=== PATIENT | female | born 1990 | race African-American/Black ===

== ENCOUNTER 2019-05-05 11:04 | Emergency (ER) | payer SELFPAY ==
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
== END 2019-05-05 15:20 | disposition home or self-care (01) ==
LOC: ERS 11:04
DX: S02.2XXA Fracture of nasal bones, initial encounter for closed fracture (principal); S00.12XA Contusion of left eyelid and periocular area, initial encounter; S10.91XA Abrasion of unspecified part of neck, initial encounter; F17.210 Nicotine dependence, cigarettes, uncomplicated; Y04.2XXA Assault by strike against or bumped into by another person, initial encounter
CPT/HCPCS: 70450; 70486; 71045; 72125

== ENCOUNTER 2019-09-11 23:30 | Emergency (ER) | payer SELFPAY ==
[2019-09-11] MEDS ORDERED: Sucralfate 1 GM TAB PO SCH (23:45)
[2019-09-11 23:59] LABS: #Lymphocytes 1.5 thou/uL (1.20-3.40); #Monocytes 0.7 thou/uL (0.11-0.59); #Neutrophils 5.7 thou/uL (1.40-6.50); %Basophils 0.2 % (0.0-1.0); %Eosinophils 0.4 % (0.0-10.0); %Lymphocytes 19.1 % (21.0-51.0); %Neutrophils 71.3 % (42.0-75.0); Hemoglobin 14.3 g/dL (12.0-16.0); Mean Corpuscular HGB CONC 33.8 g/dL (32.0-36.0); Mean Corpuscular Hemoglobin 33.6 pg (27.0-31.0); Mean Corpuscular Volume 99.6 fL (78.0-98.0); Mean Platelet Volume 7.4 fL (7.4-10.4); Platelet Count 215 thou/uL (130-400); RBC Distribution Width 10.8 % (11.5-14.5); Red Blood Cell (RBC) Count 4.24 mill/uL (4.20-5.40); White Blood Cell (WBC) Count 7.9 thou/uL (4.8-10.8)
[2019-09-12 00:07] LABS: BHCG - Serum Negative (NEGATIVE); Pregs Control Background? CLEAR/WHITE (CLR/WHITE); Pregs Control Bar Appear? YES (CONTROL BAR)
[2019-09-12 00:19] LABS: ALT (SGPT) 15 U/L (8-55); AST (SGOT) 27 U/L (5-34); Albumin 4.3 g/dL (3.5-5.0); Alkaline Phosphatase 68 U/L (40-110); Anion Gap 14 mmol/L (10-20); BUN (Urea Nitrogen) 15 mg/dL (7.0-18.7); Bilirubin, Total 0.8 mg/dL (0.2-1.2); Calc. Creatinine Clearance 0 mL/min (70-130); Calcium 9.1 mg/dL (7.8-10.44); Carbon Dioxide 24 mmol/L (22-29); Chloride 103 mmol/L (98-107); Estimated GFR-MDRD 76; Globulin 3.6 g/dL (2.4-3.5); Glucose 118 mg/dL (70-105); Lipase 12 U/L (8-78); Potassium 3.5 mmol/L (3.5-5.1); Protein, Total 7.9 g/dL (6.0-8.3); Sodium 137 mmol/L (136-145)
[2019-09-12 00:28] LABS: Bacteria/HPF 1+ HPF (None Seen); Bilirubin Negative (Negative); Blood, Urine Negative (Negative); Clarity Turbid (Clear); Glucose, Urine (Dipstick) Normal (Negative); Leukocyte 25 Leu/uL (Negative); Nitrite Negative (Negative); Protein, Urine (Dipstick) 50 mg/dL (Neg-Trace); RBC/HPF 0-3 HPF (0-3); Squamous Epithelial Greater than 50 HPF (0-3)
== END 2019-09-12 00:38 | disposition home or self-care (01) ==
LOC: ERS 23:30
DX: K29.70 Gastritis, unspecified, without bleeding (principal); F17.210 Nicotine dependence, cigarettes, uncomplicated
CPT/HCPCS: 36415; 80053; 81003; 81015; 83690; 84703; 85025; 93005

== ENCOUNTER 2020-08-08 05:19 | Day surgery (SDC) | payer OTHER ==
[2020-08-08 05:49] VITALS: BMI 36.9
[2020-08-08] MEDS ORDERED: hydrALAZINE 20 MG/ML VIAL SLOW IVP PRN (07:26)
--- NOTE | 2020-08-08 07:26 | PDOC.LDHP ---
Labor and Delivery H&P Chief complaint: contractions HPI: 30yo G1 presents for evaluation of contractions that started at 0230 this morning. They are uncomfortable, however, she has been able to talk and walk through them. Her course has been unremarkable except for a positive UDS for MJ in April. She denies loss of fluid, vaginal bleeding, or abnormal discharge. She endorses movement. C/o frequent urination. Dating criteria: second trimester ultrasound Grav: 1 Para: 0 Current complications: none Abnormal US findings: No Past Medical History: None Current medications: pre- vitamins Previous surgical history: none Allergies/Adverse Reactions: Allergies Allergy/AdvReac Type Severity Reaction Status Date / Time No Known Allergies Allergy Unverified 09/11/19 23:55 Social history: drug use - Physical Exam Vital signs reviewed and normal: yes General: NAD, resting, breathing through contractions Heart: RRR Lungs: CTAB Abdomen: NTTP Extremeties: no edema FHT: category 1 - Vaginal Exam cm dilated: 0 (@ 0600 per RN ) Effacement: 0% Station: -3 - OB Labs Blood type: O RH: positive Antibody Screen: negative HIV: negative RPR: negative HEPSAg: negative 1 hour GCT: negative GBS: negative Urine drug screen: positive (05/11 for marijuana) Rubella: immune - Assessment Term patient, in early latent labor. - SVE closed/thick/high. - Monitored FHT - reassuring and reactive. - irregular contractions. - Pt lives out of town and arrived via EMS. We will keep her for a few hours and recheck her cervix prior to deciding to send her home. - UA ordered to r/o UTI - GBS negative. Pascual SANTOS PGY2 Plan discussed with Dr. Jimenez attending. - Plan Plan: observation in L&D, other (OBGYN Fcaulty: G1Po here for labor/CTXs. CC: CTX. 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 [place] and is here for labor OBS. Initial exam was closed. EGA is 39 weeks, sees Dr Murillo. If not changed or if not actively laboring, we will likely DC homw with [facility] follow up.)
--- NOTE | 2020-08-08 08:33 | PDOC.LDHP ---
Labor and Delivery H&P Chief complaint: contractions (at term) HPI: Patient of Dr Murillo here for possible CTX. No hx VB, good FM, no SOB. States CTS come and go. She arrived here by EMS for labor observation. Also with urinary frequency. Review of Systems: No fever No SOB Good FM No diarrhea States some urinary frequency Current gestational age (weeks): 39 Dating criteria: last menstrual period Grav: 1 OB History Details: G1 Current complications: none Abnormal US findings: No Past Medical History: NA Current medications: none Allergies/Adverse Reactions: Allergies Allergy/AdvReac Type Severity Reaction Status Date / Time No Known Allergies Allergy Unverified 09/11/19 23:55 Social history: other (Patient denied substance use but she has documeneted marijuana use in Apr) - Physical Exam Vital signs reviewed and normal: yes General: breathing through contractions FHT: category 1 (mod variability with accels, rate normal) [place] contractions every: irregular - Vaginal Exam cm dilated: 0 (at first check by prior team) - Assessment Latent labor/threatened labor at 39 weeks, G1...patient with some urinary frequency. Pain looks out of scale to what we are seeing on monitor... Plan: - Plan Plan: observation in L&D (Check UA, check UDS. tracing is reassuring and I do not suspect active labor at this time. Await labs.)
[2020-08-08 08:39] LABS: Bacteria/HPF None Seen HPF (None Seen); Bilirubin Negative (Negative); Blood, Urine Negative (Negative); Clarity Clear (Clear); Glucose, Urine (Dipstick) Normal (Negative); Ketone, Urine Negative (Negative); Leukocyte Negative Leu/uL (Negative); Nitrite Negative (Negative); Protein, Urine (Dipstick) 30 mg/dL (Neg-Trace); Specific Gravity, Urine 1.026 (1.002-1.036); Urobilinogen Normal mg/dL (Less than 2); pH, Urine 6.5 (5.0-9.0)
--- NOTE | 2020-08-08 08:42 | PDOC.BPN ---
- Brief Progress Note Exam: Follow up exam per Dr Annabelle jacobson still closed but baby station at -1. This may be the cause of her pain. No evidence LOF. Strip is normal. We will await UA and UDS and home after results, likely, to follow up Sunday.
[2020-08-08] MEDS ORDERED: Butorphanol Tartrate 1 MG/ML VIAL SLOW IVP PRN (08:55)
--- NOTE | 2020-08-08 08:55 | PDOC.BPN ---
- Brief Progress Note UA not c/w uti. awaiting UDS results
[2020-08-08 09:47] LABS: Amphetamine Not Detected (NotDetected); Barbiturates Screen Not Detected (NotDetected); Benzodiazepine Screen Not Detected (NotDetected); Cocaine Metabolite Screen Not Detected (NotDetected); Medtox Control Line Valid? VALID (VALID); Medtox Reader # READER 1; Methadone Not Detected (NotDetected); Methamphetamine Not Detected (NotDetected); Opiate Screen Not Detected (NotDetected); Oxycodone Screen Not Detected (NotDetected); Phencyclidine (PCP) Not Detected (NotDetected); THC/Cannabinoid Screen Not Detected (NotDetected); Tricyclic Screen Not Detected (NotDetected)
--- NOTE | 2020-08-08 10:36 | PDOC.BPN ---
- Brief Progress Note UDS negative pt's pain controlled and eating breakfast now. D/c home with precautions of return if LOF, consistent ctx, decreased FM, va ginal bleeding. f/u with PCP, office visit on Sunday.
== END 2020-08-08 11:54 | disposition home or self-care (01) ==
LOC: L&D/OP 05:19
PROVIDERS: ATTEND Family Medicine
DX: O47.1 False labor at or after 37 completed weeks of gestation (principal); O99.891 Other specified diseases and conditions complicating pregnancy; R35.0 Frequency of micturition; Z3A.39 39 weeks gestation of pregnancy; Z20.828 Contact with and (suspected) exposure to other viral communicable diseases
CPT/HCPCS: 80306; 81003; 81015; J0595

== ENCOUNTER 2020-08-08 19:10 | Inpatient (IN) | payer OTHER ==
[~2020-08-08 19:10] MED LIST: Bupivacaine 0.25% HCL 30 ML VIAL ONE
[2020-08-08 19:49] VITALS: BMI 36.9
[2020-08-08] MEDS ORDERED: hydrALAZINE 20 MG/ML VIAL SLOW IVP PRN (21:16)
[2020-08-08] MEDS ORDERED: Ondansetron PF 4 MG/2 ML Vial IVP PRN (21:16)
[2020-08-08] MEDS ORDERED: Promethazine HCl 25 MG/ML VIAL IM PRN (21:16)
--- NOTE | 2020-08-08 21:18 | PDOC.LDHP ---
Labor and Delivery H&P Chief complaint: contractions HPI: Patient seen at bedside. See dictated H&P. Allergies/Adverse Reactions: Allergies Allergy/AdvReac Type Severity Reaction Status Date / Time No Known Allergies Allergy Verified 08/08/20 19:51
[2020-08-08] MEDS: Lactated Ringer's 1,000 ML IV SCH (21:33)
[2020-08-08] MEDS: Butorphanol Tartrate 1 MG/ML VIAL SLOW IVP PRN ×2 (21:33→23:47)
[2020-08-08 21:54] LABS: Hemoglobin 13.7 g/dL (12.0-16.0); Mean Corpuscular HGB CONC 35.6 g/dL (32.0-36.0); Mean Corpuscular Hemoglobin 33.8 pg (27.0-31.0); Mean Platelet Volume 9.5 fL (7.4-10.4); Platelet Count 233 thou/uL (130-400); RBC Distribution Width 11.8 % (11.5-14.5); Red Blood Cell (RBC) Count 4.04 mill/uL (4.20-5.40); White Blood Cell (WBC) Count 8.2 thou/uL (4.8-10.8)
[2020-08-08 22:04] LABS: ALT (SGPT) 18 U/L (8-55); AST (SGOT) 22 U/L (5-34); Albumin 3.7 g/dL (3.5-5.0); Alkaline Phosphatase 207 U/L (40-110); Anion Gap 19 mmol/L (10-20); BUN (Urea Nitrogen) 7 mg/dL (7.0-18.7); Bilirubin, Total 0.6 mg/dL (0.2-1.2); Calc. Creatinine Clearance 203 mL/min (70-130); Calcium 9.4 mg/dL (7.8-10.44); Carbon Dioxide 20 mmol/L (22-29); Chloride 100 mmol/L (98-107); Globulin 3.6 g/dL (2.4-3.5); Glucose 81 mg/dL (70-105); Potassium 3.7 mmol/L (3.5-5.1); Protein, Total 7.3 g/dL (6.0-8.3); Sodium 135 mmol/L (136-145)
--- NOTE | 2020-08-08 22:17 | HP ---
TIME OF EVALUATION: Roughly 2099, time now 2124. LOCATION: Labor and Delivery in triage B. CHIEF COMPLAINT: Contractions. This is a patient of Dr. Murillo. EGA: 39 weeks HISTORY OF PRESENT ILLNESS: In brief, this patient is a 30-year-old, here for contractions. She was seen earlier in the day and made no cervical change from 1 cm, so we send her home. She is a G1, P0. She states that she went home, but still had regular contractions, but she denies vaginal bleeding or leakage of fluid. She denies shortness of breath or recent trauma. At this point, she notes that her course has been complicated for positive urine drug screen for marijuana back in April. She did have a urine tox screen done earlier today when she was in triage and nothing was detected. REVIEW OF SYSTEMS: Complete review of systems was checked and is otherwise negative unless specified in the HPI. GENERAL: She denies chills or fevers. CHEST: No chest pain or shortness of breath. OB/Uterus: She has good movement, but does have painful contractions, although she denies vaginal bleeding or leakage of fluid. EXTREMITIES: No pain or swelling in the extremities. PAST MEDICAL HISTORY: None. CURRENT MEDICATIONS: vitamins. PREVIOUS SURGICAL HISTORY: None. ALLERGIES: NO KNOWN DRUG ALLERGIES. SOCIAL HISTORY: Positive for marijuana, although the patient denies. PHYSICAL EXAMINATION: VITAL SIGNS: Blood pressure ranges from 130s over 70s to 140s over 80s. Pulse is in the 90s and she is afebrile. GENERAL: She is in no acute distress, but is having some pain with contractions. ABDOMEN: Soft and nontender and gravid and size appropriate for dates. Vaginal exam reveals a cervix about 1 cm dilation, still about 75% effaced, -2 station by RN exam. There is no gross evidence of leakage of water or vaginal bleeding. On the external monitor, I have evaluated the monitor and I find the heart tones to be reactive/reassuring. There are contractions on the tocodynamometer. They are somewhat irregular, about every 3 to 5 minutes or so. Currently, the maternal heart rate is being registered at around 90 due to maternal position changes. ASSESSMENT: This is a primigravida with an estimated gestational age of 39 weeks today with latent labor. This is her second evaluation in Labor and Delivery. PLAN: 1. As this is her second visit to Labor and Delivery and she is 39 weeks with some borderline blood pressures (although I suspect that they may be pain related), we will keep the patient for admission. 2. I have sent Dr. Chidi Paul. 3. If she does not make cervical change, we will consider Cytotec once she has a better pain relief. 4. I have ordered evaluation for preeclampsia including a CMP and a CBC. Job ID: [id number] MTDD
[2020-08-08 22:23] LABS: Syphilis Antibody Nonreactive (Nonreactive); Syphilis Antibody Index 0.03 S/CO (<1.00 Non-Reactive)
[2020-08-08 22:33] LABS: HBSAg Index 0.13 S/CO (0-0.99); HIV (1/2) Antibody/Antigen Non-Reactive (NonReactive); HIV 1/2 INDEX 0.11 S/CO (<1.00); Hep B Surf Ag Non-Reactive S/CO (NonReactive)
[2020-08-09] MEDS ORDERED: DISCONTINUE ALL PREVIOUS NARCOTICS FS SCH (02:00)
[2020-08-09] MEDS: Bupivacaine 0.5% 20 ML, fentaNYL Citrate/PF 400 MCG in Sodium Chloride 0.9% 72 ML EPIDURAL SCH ×2 (02:27→09:56)
[2020-08-09] MEDS ORDERED: Acetaminophen 325 MG TAB PO PRN (02:31)
[2020-08-09] MEDS ORDERED: Promethazine HCl 25 MG/ML VIAL IM PRN ×2 (02:31→20:13)
[2020-08-09] MEDS ORDERED: Ondansetron PF 4 MG/2 ML Vial IVP PRN ×2 (02:31→20:13)
[2020-08-09] MEDS ORDERED: Naloxone HCl 0.4 mg/ml Vial IVP PRN ×2 (02:31)
[2020-08-09] MEDS ORDERED: ePHEDrine 50 MG/ML VIAL SLOW IVP PRN (02:31)
[2020-08-09] MEDS ORDERED: Lactated Ringer's 500 ML IV PRN (02:31)
[2020-08-09] MEDS ORDERED: diphenhydrAMINE 50 MG/ML VIAL IVP PRN (02:31)
[2020-08-09] MEDS: Lactated Ringer's 1,000 ML IV SCH ×2 (02:35→11:10)
[2020-08-09] MEDS ORDERED: Fentanyl 4 mcg/Bupivacaine 0.1% Cassette 100 ML EPIDURAL SCH (02:45)
[2020-08-09] MEDS ORDERED: Communication Order-Pharmacy FS SCH (02:45)
[2020-08-09 05:41] LABS: SARS-CoV-2 MS2 Positive; SARS-CoV-2 N Gene Negative; SARS-CoV-2 S Gene Negative; SARS-CoV-2 by NAA Not Detected (NotDetected); SARS-CoV-2 orf1ab Negative
[2020-08-09] MEDS ORDERED: NS w/ Oxytocin 10 units 500 ML IVPB SCH (07:45)
[2020-08-09] MEDS ORDERED: NS / Oxytocin 40 units/1000ml 1,000 ML IV PRN (13:20)
[2020-08-09] MEDS ORDERED: Lidocaine 1% (PF) 30 ML VIAL SC PRN (13:20)
[2020-08-09] MEDS ORDERED: Carboprost 250 MCG/ML AMP IM PRN (13:20)
[2020-08-09] MEDS ORDERED: Misoprostol 200 MCG TAB PR PRN (13:20)
[2020-08-09] MEDS ORDERED: HYDROcodone/Acetaminophen 5/325 mg Tablet PO PRN ×3 (13:20→20:13)
[2020-08-09] MEDS ORDERED: Diphenoxylate HCl/Atropine Tablet PO PRN (13:20)
[2020-08-09] MEDS ORDERED: Ibuprofen 800 MG TAB PO PRN (13:20)
[2020-08-09] MEDS ORDERED: Butorphanol Tartrate 1 MG/ML VIAL SLOW IVP SCH (17:30)
[2020-08-09] MEDS ORDERED: Milk Of Magnesia 30 ML UDCUP PO PRN (20:13)
[2020-08-09] MEDS ORDERED: Preparation H Ointment 28 GM TUBE PR PRN (20:13)
[2020-08-09] MEDS ORDERED: diphenhydrAMINE 25 MG CAP PO PRN (20:13)
[2020-08-09] MEDS ORDERED: Bisacodyl 10 MG SUPP PR PRN (20:13)
[2020-08-09] MEDS ORDERED: cloNIDine 0.1 MG TAB PO PRN (20:13)
[2020-08-09] MEDS ORDERED: NS / Oxytocin 40 units/1000ml 1,000 ML IV SCH (20:13)
[2020-08-09] MEDS ORDERED: hydrALAZINE 20 MG/ML VIAL SLOW IVP SCH (20:30)
[2020-08-09] MEDS: Ibuprofen 800 MG TAB PO SCH (21:22)
[2020-08-09] MEDS: Docusate Calcium (SURFAK) 240 MG CAP PO SCH (22:21)
[2020-08-10] MEDS: Ibuprofen 800 MG TAB PO SCH ×3 (05:15→21:18)
[2020-08-10] MEDS: Ferrous Sulfate 325 MG TAB PO SCH ×2 (08:36→16:41)
[2020-08-10] MEDS: Prenatal Vitamin 1 TAB PO SCH (08:53)
[2020-08-10] MEDS: Benzocaine-Menthol 82.5 ML CAN TOP PRN (08:53)
[2020-08-10] MEDS: Docusate Calcium (SURFAK) 240 MG CAP PO SCH ×2 (08:53→21:17)
[2020-08-10] MEDS ORDERED: Adacel (T-DAP) 0.5 ML SYRINGE IM ONE (09:00)
[2020-08-11] MEDS: Ibuprofen 800 MG TAB PO SCH ×2 (05:56→13:10)
[2020-08-11 08:13] VITALS: BP 110/59; TEMP 97.9
[2020-08-11] MEDS: Ferrous Sulfate 325 MG TAB PO SCH (08:19)
[2020-08-11] MEDS: Docusate Calcium (SURFAK) 240 MG CAP PO SCH (08:37)
[2020-08-11] MEDS: Prenatal Vitamin 1 TAB PO SCH (08:37)
[2020-08-11] MEDS: Benzocaine-Menthol 82.5 ML CAN TOP PRN (08:44)
== END 2020-08-11 13:27 | disposition home or self-care (01) | DRG 807 ==
LOC: L&D/OP 19:10 → L&D 21:16 → 3SW 08-09 20:50
PROVIDERS: ADMIT Family Medicine; ATTEND Family Medicine
PROC: 10E0XZZ Delivery of Products of Conception, External Approach (ICD-10-PCS; principal; 2020-08-09)
PROC: 10907ZC Drainage of Amniotic Fluid, Therapeutic from Products of Conception, Via Natural or Artificial Opening (ICD-10-PCS; 2020-08-09)
PROC: 0W8NXZZ Division of Female Perineum, External Approach (ICD-10-PCS; 2020-08-09)
DX: O99.214 Obesity complicating childbirth (principal); Z37.0 Single live birth; Z3A.39 39 weeks gestation of pregnancy; E66.9 Obesity, unspecified; Z20.828 Contact with and (suspected) exposure to other viral communicable diseases
CPT/HCPCS: 36415; 51701; 51702; 80053; 80306; 81003; 81015; 85027; 86780; 86850; 86900; 86901; 87340; 87389; 87635; 96360; 96361; 96375; 99284; 99285; J0360; J0595; J2590; J3010; J3490; Q0163; S0020; U0003

== ENCOUNTER 2021-01-30 12:02 | Emergency (ER) | payer OTHER ==
[2021-01-30] MEDS ORDERED: Ibuprofen 800 MG TAB ONE (13:14)
== END 2021-01-30 13:17 | disposition home or self-care (01) ==
LOC: ERS 12:02
DX: J02.9 Acute pharyngitis, unspecified (principal); M79.10 Myalgia, unspecified site; Z20.822 Contact with and (suspected) exposure to COVID-19; F17.210 Nicotine dependence, cigarettes, uncomplicated
CPT/HCPCS: 99283

== ENCOUNTER 2021-08-20 10:23 | Emergency (ER) | payer OTHER ==
[2021-08-20 19:40] LABS: SARS-CoV-2 PCR by NAA Not Detected (NotDetected)
== END 2021-08-20 12:18 | disposition home or self-care (01) ==
LOC: ERS 10:23
DX: Z20.822 Contact with and (suspected) exposure to COVID-19 (principal); Z87.891 Personal history of nicotine dependence
CPT/HCPCS: 99283; U0003; U0005

== ENCOUNTER 2022-03-08 11:03 | Emergency (ER) | payer OTHER | END 2022-03-08 13:58 | disposition home or self-care (01) | LOC: ERS 11:03 | DX: R05.9 Cough, unspecified (principal); Z20.822 Contact with and (suspected) exposure to COVID-19; Z87.891 Personal history of nicotine dependence | CPT/HCPCS: 99283; U0003; U0005 ==

== ENCOUNTER 2022-12-07 13:59 | Outpatient (CLI) | payer OTHER | END 2022-12-07 14:00 | disposition home or self-care (01) | LOC: BICULT 13:59 | PROVIDERS: ATTEND Family Medicine | DX: O09.892 Supervision of other high risk pregnancies, second trimester (principal); Z3A.21 21 weeks gestation of pregnancy | CPT/HCPCS: 76805 ==

== ENCOUNTER 2023-05-14 22:53 | Emergency (ER) | payer MEDICAID, OTHER ==
[2023-05-14 23:29] LABS: Bacteria/HPF 3+ HPF (None Seen); Bilirubin Negative (Negative); Blood, Urine 2+ (Negative); CAUTI Indications for Culture Dysuria,urgency,freq; Clarity Extra Turbid (Clear); Glucose, Urine (Dipstick) Normal (Negative); Ketone, Urine Negative (Negative); Leukocyte 500 Leu/uL (Negative); Nitrite 1+ (Negative); Protein, Urine (Dipstick) 100 mg/dL (Neg-Trace); Renal Epithelial 0-3 HPF (None Seen); Specific Gravity, Urine 1.012 (1.002-1.036); Urobilinogen Normal mg/dL (Less than 2); WBC/HPF Greater than 50 HPF (0-3)
[2023-05-14 23:30] LABS: #Monocytes 0.6 thou/uL (0.11-0.59); %Basophils 0.1 % (0.0-1.0); %Eosinophils 0.3 % (0.0-10.0); %Lymphocytes 14.4 % (21.0-51.0); %Monocytes 8.1 % (0.0-10.0); Mean Corpuscular HGB CONC 32.5 g/dL (32.0-36.0); Mean Corpuscular Hemoglobin 31.3 pg (27.0-31.0); Mean Corpuscular Volume 96.2 fl (78.0-98.0); Mean Platelet Volume 10.3 fL (7.4-10.4); Platelet Count 229 10x3/uL (130-400); RBC Distribution Width 12.5 % (11.5-14.5); Red Blood Cell (RBC) Count 4.16 mill/uL (4.20-5.40); White Blood Cell (WBC) Count 7.8 10x3/uL (4.8-10.8)
[2023-05-14 23:35] LABS: Urine Culture Reflex Yes Yes
[2023-05-14 23:54] LABS: ALT (SGPT) 26 U/L (8-55); AST (SGOT) 31 U/L (5-34); Albumin 4.1 g/dL (3.5-5.0); Alkaline Phosphatase 90 U/L (40-110); Anion Gap 15 mmol/L (10-20); BUN (Urea Nitrogen) 10 mg/dL (7.0-18.7); Bilirubin, Total 0.5 mg/dL (0.2-1.2); Calc. Creatinine Clearance 0 mL/min (70-130); Calcium 9.5 mg/dL (7.8-10.44); Carbon Dioxide 24 mmol/L (22-29); Chloride 102 mmol/L (98-107); Estimated GFR 77; Globulin 3.6 g/dL (2.4-3.5); Glucose 85 mg/dL (70-105); Potassium 3.7 mmol/L (3.5-5.1); Protein, Total 7.7 g/dL (6.0-8.3); Sodium 137 mmol/L (136-145)
[2023-05-15] LABS: Pregnancy Test - Urine (BHCG) Negative (Negative); Pregu Control Background? CLEAR/WHITE (CLR/WHITE); Pregu Control Bar Appear? YES (CONTROL BAR); Specific Gravity 1.012 (1.002-1.036)
[2023-05-15] MEDS ORDERED: Ketorolac Tromethamine 30 MG/ML VIAL ONE (00:29)
[2023-05-15] MEDS ORDERED: Famotidine/PF 20 mg/2ml Vial ONE (00:29)
[2023-05-15] MEDS ORDERED: diphenhydrAMINE 50 MG/ML VIAL ONE (00:29)
[2023-05-15] MEDS ORDERED: methylPREDNISolone Sod Succ 40 MG VIAL ONE (00:29)
[2023-05-15] MEDS ORDERED: cefTRIAXone (ROCEPHIN) 2 GM VIAL ONE (01:06)
== END 2023-05-15 03:17 | disposition home or self-care (01) ==
LOC: ERS 22:53
DX: N10 Acute pyelonephritis (principal); N83.202 Unspecified ovarian cyst, left side
CPT/HCPCS: 36415; 74176; 76856; 80053; 81001; 81025; 85025; 87077; 87086; 93976; 96361; 96365; 96375; J0696; J1200; J1885; J2920; S0028

== ENCOUNTER 2023-07-04 11:15 | Emergency (ER) | payer OTHER ==
[2023-07-04] MEDS ORDERED: Naproxen 500 MG TAB ONE (12:27)
== END 2023-07-04 12:30 | disposition home or self-care (01) ==
LOC: ERS 11:15
DX: H65.92 Unspecified nonsuppurative otitis media, left ear (principal)
CPT/HCPCS: 99282

== ENCOUNTER 2024-02-26 16:48 | Observation (INO) | payer OTHER ==
[2024-02-26 17:55] LABS: #Basophils Less than 0.03 10x3/uL (0.0-0.2); #Eosinphils Less than 0.03 10x3/uL (0.0-0.7); %Basophils 0.3 % (0.0-1.0); %Eosinophils 0.1 % (0.0-10.0); %Lymphocytes 16.3 % (21.0-51.0); Hematocrit 40.8 % (36.0-47.0); Hemoglobin 13.8 g/dL (12.0-16.0); Mean Corpuscular HGB CONC 33.8 g/dL (32.0-36.0); Mean Corpuscular Hemoglobin 32.2 pg (27.0-31.0); Mean Corpuscular Volume 95.3 fL (78.0-98.0); Mean Platelet Volume 9.4 fL (7.4-10.4); Platelet Count 296 10x3/uL (130-400); RBC Distribution Width 12.1 % (11.5-14.5); Red Blood Cell (RBC) Count 4.28 mill/uL (4.20-5.40)
[2024-02-26 18:13] LABS: ALT (SGPT) 14 U/L (8-55); AST (SGOT) 19 U/L (5-34); Alkaline Phosphatase 58 U/L (40-110); Anion Gap 13 mmol/L (10-20); BUN (Urea Nitrogen) 11 mg/dL (7.0-18.7); Bilirubin, Total 0.7 mg/dL (0.2-1.2); Calc. Creatinine Clearance 0 mL/min (70-130); Calcium 9.2 mg/dL (7.8-10.44); Carbon Dioxide 26 mmol/L (22-29); Chloride 106 mmol/L (98-107); Estimated GFR 98; Globulin 3.9 g/dL (2.4-3.5); Glucose 73 mg/dL (70-105); Lipase 10 U/L (8-78); Potassium 3.2 mmol/L (3.5-5.1); Protein, Total 7.9 g/dL (6.0-8.3); Sodium 142 mmol/L (136-145)
[2024-02-26 18:15] LABS: Troponin I Less than 0.010 ng/mL (< 0.028)
[2024-02-26 18:27] LABS: Phosphorus 2.1 mg/dL (2.3-4.7)
[2024-02-26 18:29] LABS: Magnesium 1.6 mg/dL (1.6-2.6)
[2024-02-26] MEDS ORDERED: Magnesium 2 GM/50 ML BAG (IN WATER) ONE (18:37)
[2024-02-26] MEDS ORDERED: Ondansetron PF 4 MG/2 ML Vial IVP PRN (19:15)
[2024-02-26] MEDS ORDERED: Acetaminophen 325 MG TAB PO PRN (19:15)
[2024-02-26] MEDS ORDERED: Ondansetron ODT 4 MG TAB SL PRN (19:15)
[2024-02-26 19:26] LABS: Bacteria/HPF 3+ HPF (None Seen); Bilirubin Negative (Negative); Blood, Urine 3+ (Negative); CAUTI Indications for Culture Alt mental st,lethar; Clarity Turbid (Clear); Glucose, Urine (Dipstick) Normal (Negative); Ketone, Urine Trace mg/dL (Negative); Leukocyte 25 Leu/uL (Negative); Mucous/LPF Rare LPF (<2+); Nitrite Negative (Negative); Protein, Urine (Dipstick) 70 mg/dL (Neg-Trace); Specific Gravity, Urine 1.028 (1.002-1.036); Urobilinogen Normal mg/dL (Less than 2); pH, Urine 8.5 (5.0-9.0)
[2024-02-26 19:27] LABS: Urine Culture Reflex No No
[2024-02-26 19:32] LABS: Amphetamine Not Detected (NotDetected); Barbiturates Screen Not Detected (NotDetected); Benzodiazepine Screen Not Detected (NotDetected); Cocaine Metabolite Screen Not Detected (NotDetected); Methadone Not Detected (NotDetected); Methamphetamine Not Detected (NotDetected); Opiate Screen Not Detected (NotDetected); Oxycodone Screen Not Detected (NotDetected); Phencyclidine (PCP) Not Detected (NotDetected); THC/Cannabinoid Screen Detected (NotDetected); Tricyclic Screen Not Detected (NotDetected)
[2024-02-26] MEDS ORDERED: Potassium Chloride 20 MEQ TAB ONE (19:36)
[2024-02-26 19:49] LABS: Pregnancy Test - Urine (BHCG) Negative (Negative); Pregu Control Background? CLEAR/WHITE (CLR/WHITE); Pregu Control Bar Appear? YES (CONTROL BAR); Specific Gravity 1.028 (1.002-1.036)
[2024-02-26] MEDS: PHOS-NAK 1 PKT PACK PO SCH (20:42)
[2024-02-26] MEDS: Sodium Chloride 0.9% 1,000 ML IV SCH (20:42)
[2024-02-26 20:46] VITALS: BMI 36.1
[2024-02-26] MEDS: Potassium Chloride 20 MEQ TAB PO SCH (23:29)
[2024-02-27] MEDS: Acetaminophen 325 MG TAB PO PRN (03:18)
[2024-02-27 03:55] LABS: #Basophils Less than 0.03 10x3/uL (0.0-0.2); #Eosinphils Less than 0.03 10x3/uL (0.0-0.7); %Basophils 0.2 % (0.0-1.0); %Eosinophils 0.3 % (0.0-10.0); %Lymphocytes 36.5 % (21.0-51.0); %Monocytes 8.4 % (0.0-10.0); %Neutrophils 54.4 % (42.0-75.0); Hematocrit 40.2 % (36.0-47.0); Hemoglobin 13.5 g/dL (12.0-16.0); Mean Corpuscular HGB CONC 33.6 g/dL (32.0-36.0); Mean Corpuscular Hemoglobin 32.3 pg (27.0-31.0); Mean Corpuscular Volume 96.2 fL (78.0-98.0); Mean Platelet Volume 9.9 fL (7.4-10.4); Platelet Count 285 10x3/uL (130-400); RBC Distribution Width 12.1 % (11.5-14.5); Red Blood Cell (RBC) Count 4.18 mill/uL (4.20-5.40)
[2024-02-27 04:38] LABS: Anion Gap 13 mmol/L (10-20); BUN (Urea Nitrogen) 12 mg/dL (7.0-18.7); Calc. Creatinine Clearance 159 mL/min (70-130); Calcium 8.9 mg/dL (7.8-10.44); Carbon Dioxide 21 mmol/L (22-29); Chloride 106 mmol/L (98-107); Estimated GFR 99; Glucose 75 mg/dL (70-105); Magnesium 1.9 mg/dL (1.6-2.6); Potassium 3.4 mmol/L (3.5-5.1); Sodium 137 mmol/L (136-145)
[2024-02-27] MEDS: Potassium Chloride 20 MEQ TAB PO SCH (07:45)
[2024-02-27] MEDS ORDERED: Electrolyte Replacement Protocol 1 EACH FS SCH (07:45)
[2024-02-27] MEDS: Magnesium 2 GM/50 ML(in water) 2 GM in Premix 1 BAG IVPB SCH (10:07)
[2024-02-27 11:21] LABS: Phosphorus 2.1 mg/dL (2.3-4.7); Potassium 4.2 mmol/L (3.5-5.1)
[2024-02-27 12:03] VITALS: BP 127/79; TEMP 98
[2024-02-27] MEDS: PHOS-NAK 1 PKT PACK PO SCH (12:27)
== END 2024-02-27 12:45 | disposition home or self-care (01) ==
LOC: ERS 16:48 → 2SW 19:05
PROVIDERS: ADMIT Physician Assistant; ATTEND Family Medicine
PROC: B246ZZZ Ultrasonography of Right and Left Heart (ICD-10-PCS; principal; 2024-02-27)
DX: R55 Syncope and collapse (principal); I08.1 Rheumatic disorders of both mitral and tricuspid valves; R94.31 Abnormal electrocardiogram [ECG] [EKG]; E87.6 Hypokalemia; E83.39 Other disorders of phosphorus metabolism; E83.42 Hypomagnesemia; R82.71 Bacteriuria; F17.200 Nicotine dependence, unspecified, uncomplicated; F12.10 Cannabis abuse, uncomplicated; Z88.5 Allergy status to narcotic agent; Z79.899 Other long term (current) drug therapy
CPT/HCPCS: 36415; 71045; 80048; 80053; 80306; 81001; 81025; 83690; 83735; 84100; 84443; 84484; 85025; 93005; 93010; 93306; 96376; G0378; J3475; J7050

== ENCOUNTER 2024-06-17 09:58 | Emergency (ER) | payer OTHER ==
[2024-06-17] MEDS ORDERED: Ibuprofen 800 MG TAB ONE (12:17)
[2024-06-17] MEDS ORDERED: Dexamethasone 4 MG TAB ONE (12:17)
== END 2024-06-17 13:28 | disposition home or self-care (01) ==
LOC: ERS 09:58
DX: B34.9 Viral infection, unspecified (principal)
CPT/HCPCS: 71045; 87081; 87428; 87430; J8540